=== PATIENT | male | born 1940 | race African-American/Black ===

== ENCOUNTER 2017-01-01 18:37 | Emergency (ER) | payer SELFPAY ==
[~2017-01-01] VITALS: Ht 175.3 cm; Wt 79.0 kg
[2017-01-01] MEDS ORDERED: HYDROCODONE/ACETAMINOPHEN 5/325MG TABLET PO ONE (19:15)
[2017-01-01] MEDS ORDERED: IBUPROFEN 800MG TABLET PO ONE (19:15)
[2017-01-01 21:04] VITALS: BP 128/71
== END 2017-01-01 22:52 | disposition home or self-care (01) ==
LOC: ER 18:38
DX: S16.1XXA Strain of muscle, fascia and tendon at neck level, initial encounter (principal); R51 Headache; I10 Essential (primary) hypertension; E11.9 Type 2 diabetes mellitus without complications; V49.49XA Driver injured in collision with other motor vehicles in traffic accident, initial encounter; Y93.89 Activity, other specified; Y99.9 Unspecified external cause status; Y92.89 Other specified places as the place of occurrence of the external cause
CPT/HCPCS: 70450; 71010; 72125; 99284; Z7610